=== PATIENT | male | born 1950 | race Two or more races ===

== ENCOUNTER 2018-01-25 23:38 | Inpatient (IN) | payer OTHER ==
[~2018-01-25] VITALS: Ht 165.1 cm; Wt 83.9 kg
== END 2018-01-27 11:00 | disposition designated cancer center or children's hospital (05) | DRG 280 ==
LOC: ER 23:38 → ICU-2 01-26 09:55 → SEC-K 01-26 09:55 → ICU-2 01-26 10:21
PROC: 4A033R1 Measurement of Arterial Saturation, Peripheral, Percutaneous Approach (ICD-10-PCS; principal; 2018-01-26)
PROC: 3E0F7GC Introduction of Other Therapeutic Substance into Respiratory Tract, Via Natural or Artificial Opening (ICD-10-PCS; 2018-01-26)
PROC: BB24ZZZ Computerized Tomography (CT Scan) of Bilateral Lungs (ICD-10-PCS; 2018-01-26)
PROC: B346ZZZ Ultrasonography of Right Internal Carotid Artery (ICD-10-PCS; 2018-01-26)
DX: I11.0 Hypertensive heart disease with heart failure (principal); I50.31 Acute diastolic (congestive) heart failure; I21.29 ST elevation (STEMI) myocardial infarction involving other sites; D72.828 Other elevated white blood cell count; I25.10 Atherosclerotic heart disease of native coronary artery without angina pectoris; I35.0 Nonrheumatic aortic (valve) stenosis; J44.9 Chronic obstructive pulmonary disease, unspecified